=== PATIENT | female | born 1980 | race African-American/Black ===

== ENCOUNTER 2017-09-21 01:53 | Emergency (ER) | payer MEDICAID, OTHER ==
[~2017-09-21] VITALS: Ht 167.6 cm; Wt 75.0 kg
[2017-09-21] MEDS ORDERED: SODIUM CHLORIDE 0.9% 1,000 ML IV ONE (05:00)
[2017-09-21 05:45] VITALS: BP 122/70
== END 2017-09-21 05:49 | disposition home or self-care (01) ==
LOC: ER 01:53
DX: F41.9 Anxiety disorder, unspecified (principal); R07.89 Other chest pain
CPT/HCPCS: 71045; 81025; 93005; 99284; J7030; Z7610

== ENCOUNTER 2023-05-01 08:22 | Emergency (ER) | payer MEDICAID ==
[~2023-05-01] VITALS: Ht 160 cm; Wt 62.0 kg
[2023-05-01 08:23] VITALS: O2SAT 99
[2023-05-01] MEDS: ACETAMINOPHEN 325MG TABLET PO ONE (09:15)
[2023-05-01] MEDS: KETOROLAC 60MG/2ML VIAL IM ONE (09:15)
[2023-05-01] MEDS ORDERED: TOPUD PO (09:50)
[2023-05-01] MEDS ORDERED: NAPR500T7 MT (09:50)
[2023-05-01 10:19] VITALS: BP 135/68; PULSE 82; RESP 16; TEMP 98.4
== END 2023-05-01 11:22 | disposition home or self-care (01) ==
LOC: ER 09:52
DX: S62.634A Displaced fracture of distal phalanx of right ring finger, initial encounter for closed fracture (principal); V49.9XXA Car occupant (driver) (passenger) injured in unspecified traffic accident, initial encounter; Y93.89 Activity, other specified; Y92.89 Other specified places as the place of occurrence of the external cause; Y99.8 Other external cause status
CPT/HCPCS: 99283; 73130; 29130; 96372; J1885